=== PATIENT | male | born 1995 | race African-American/Black ===

== ENCOUNTER 2017-03-09 11:09 | Emergency (ER) | payer BC, SELFPAY ==
[2017-03-09] MEDS ORDERED: Ibuprofen 200 MG TAB ONE ×2 (11:37→11:43)
[2017-03-09] MEDS ORDERED: diphenhydrAMINE HCl 25 MG CAP ONE ×2 (11:38→11:43)
== END 2017-03-09 11:48 | disposition home or self-care (01) ==
LOC: NAV ERS 11:09
DX: T63.301A Toxic effect of unspecified spider venom, accidental (unintentional), initial encounter (principal)
CPT/HCPCS: 99282

== ENCOUNTER 2018-05-28 14:24 | Emergency (ER) | payer BC, SELFPAY | END 2018-05-28 15:10 | disposition home or self-care (01) | LOC: NAV ERS 14:24 | DX: J06.9 Acute upper respiratory infection, unspecified (principal) | CPT/HCPCS: 99283 ==